=== PATIENT | female | born 1995 | race Caucasian/White ===

== ENCOUNTER 2018-04-30 09:59 | Day surgery (SDC) | payer OTHER, BC ==
[2018-04-30] MEDS ORDERED: PROPOFOL 100 ML (11:17)
[2018-04-30] MEDS: LIDOCAINE 1%/EPI (1:100,000) (MDV) 20 ML (11:48)
[2018-04-30] MEDS ORDERED: DEXAMETHASONE 4 MG/ML 5 ML INJ (11:51)
[2018-04-30] MEDS ORDERED: morphine 10 MG INJ (12:49)
[2018-04-30] MEDS ORDERED: ROCURONIUM 50 MG INJ (13:50)
[2018-04-30] MEDS ORDERED: CEFAZOLIN 1 GM INJ (13:50)
[2018-04-30] MEDS ORDERED: ONDANSETRON 4 MG INJ (13:50)
[2018-04-30] MEDS ORDERED: NEOSTIGMINE 10 MG INJ (13:51)
[2018-04-30] MEDS ORDERED: GLYCOPYRROLATE 0.4 MG INJ (13:51)
[2018-04-30] MEDS ORDERED: HYDROmorphONE 1 MG/5 ML IV SYRINGE IV ×2 (14:30)
[2018-04-30] MEDS ORDERED: EPHEDrine SULFATE 50 MG/5 ML SYG IV (14:30)
[2018-04-30] MEDS ORDERED: FENTAnyl 50 MCG/ML VIAL IV ×2 (14:30)
[2018-04-30] MEDS ORDERED: LABETALOL HCL 20MG INJ IV (14:30)
[2018-04-30] MEDS ORDERED: hydrALAzine 20 MG INJ IV (14:30)
[2018-04-30] MEDS ORDERED: MEPERIDINE 25 MG INJ IV (14:30)
[2018-04-30] MEDS ORDERED: OXYCODONE/ACETAMINOPHEN (5/325) TAB PO ×2 (14:30)
[2018-04-30] MEDS ORDERED: METOCLOPRAMIDE 10 MG INJ IV (14:30)
[2018-04-30] MEDS ORDERED: ALBUTEROL 0.083% (NEB) 2.5 MG/3 ML AMP HHN (14:30)
[2018-04-30] MEDS ORDERED: DIPHENHYDRAMINE 50 MG INJ IV (14:30)
[2018-04-30] MEDS: FENTAnyl 50 MCG/ML VIAL IV ×2 (15:03→15:12)
[2018-04-30] MEDS: ONDANSETRON 4 MG INJ IV (15:03)
[2018-04-30] MEDS: KETOROLAC 30 MG INJ IV (15:04)
[2018-04-30] MEDS: HYDROmorphONE 1 MG/5 ML IV SYRINGE IV ×2 (15:04→15:12)
== END 2018-04-30 16:05 | disposition home or self-care (01) ==
LOC: SDS 09:59
DX: C73 Malignant neoplasm of thyroid gland (principal); R13.10 Dysphagia, unspecified
CPT/HCPCS: 60210; 88307

== ENCOUNTER 2018-05-28 07:11 | Day surgery (SDC) | payer OTHER ==
[~2018-05-28 07:11] MED LIST: SUCCINYLCHOLINE CHLORIDE 100 MG/5 ML SYG IV
[2018-05-28] MEDS ORDERED: CEFAZOLIN 1 GM INJ (09:23)
[2018-05-28] MEDS ORDERED: GLYCOPYRROLATE 0.4 MG INJ (09:25)
[2018-05-28] MEDS ORDERED: PHENYLephrine (100 MCG/ML) 10ML SYG (09:27)
[2018-05-28] MEDS ORDERED: FAMOTIDINE 20 MG INJ (09:36)
[2018-05-28] MEDS ORDERED: ONDANSETRON 4 MG INJ (09:36)
[2018-05-28] MEDS ORDERED: DEXAMETHASONE 4 MG/ML 5 ML INJ (09:36)
[2018-05-28] MEDS ORDERED: EPHEDrine 25 MG/5 ML SYG (09:43)
[2018-05-28] MEDS ORDERED: LIDOCAINE 2% (SDV) 5 ML INJ (09:46)
[2018-05-28] MEDS ORDERED: PROPOFOL 20 ML ×2 (09:46→10:53)
[2018-05-28] MEDS: LIDOCAINE 1%/EPI (1:100,000) (MDV) 20 ML (10:17)
[2018-05-28] MEDS ORDERED: MEPERIDINE 25 MG INJ IV (11:30)
[2018-05-28] MEDS ORDERED: ONDANSETRON 4 MG INJ IV (11:30)
[2018-05-28] MEDS: FENTAnyl 50 MCG/ML VIAL IV (11:39)
[2018-05-28] MEDS ORDERED: HYDROmorphONE 1 MG/5 ML IV SYRINGE IV ×4 (12:00)
[2018-05-28 13:03] LABS: IONIZED CALCIUM 1.2 mmol/L (1.1-1.4)
[2018-05-28] MEDS: OXYCODONE/ACETAMINOPHEN (5/325) TAB PO (13:04)
== END 2018-05-28 13:25 | disposition home or self-care (01) ==
LOC: SDS 07:11
DX: E06.3 Autoimmune thyroiditis (principal); Z85.850 Personal history of malignant neoplasm of thyroid
CPT/HCPCS: 60240; 82310; 82330; 84703; 88307